=== PATIENT | male | born 1965 | race Caucasian/White ===

== ENCOUNTER 2023-08-15 22:00 | Inpatient (IN) | payer OTHER ==
[2023-08-15] MEDS ORDERED: FUROSEMIDE 40 MG/4 ML INJECTABLE VIAL IVPUSH ONE (22:34)
[2023-08-15] MEDS ORDERED: ALBUTEROL SO4 2.5/IPRATROPIUM 0.5 INH SOL 3 ML VIAL.NEB. NEB ONE (23:01)
[2023-08-15] MEDS: ALBUTEROL SO4 2.5/IPRATROPIUM 0.5 INH SOL 3 ML VIAL.NEB. NEB SCH ×3 (23:06→23:37)
[2023-08-15] MEDS ORDERED: FUROSEMIDE 40 MG/4 ML INJECTABLE VIAL ONE (23:38)
[2023-08-15 23:39] LABS: VENOUS BASE EXCESS 5.2 mmol/L (-2-2); VENOUS PH 7.234 (7.310-7.410)
[2023-08-15 23:43] LABS: VENOUS PCO2 86.5 mmHg (38-52)
[2023-08-15 23:47] LABS: BASO % 0.5 % (0-2.0); EOS % 1.4 % (0-4.5); HEMATOCRIT 40.7 % (35.4-49); HEMOGLOBIN 12.9 GM/dL (11.7-16.9); LYMPH % 22.1 % (8-40); MCH 28.2 pg (25.7-33.7); MCHC 31.6 g/dl (32.0-35.9); MEAN CELL VOLUME 89.1 fl (80-96); MEAN PLT VOLUME 7.8 fl (7.5-11.1); MONO % 6.6 % (3.8-10.2); NEUT % 69.4 % (42.8-82.8); PLATELET COUNT 308 10^3/uL (134-434); RBC 4.57 M/mm3 (4.00-5.60); RDW 15.4 % (11.9-15.9); WHITE BLOOD COUNT 12.6 K/mm3 (4.0-10.0)
[2023-08-15 23:54] LABS: INR 0.97 (0.83-1.09); PROTHROMBIN TIME (PATIENT) 11.2 SEC (9.7-13.0)
[2023-08-15 23:57] LABS: ACTIVATED PTT 28.2 SECONDS (25.2-36.5)
[2023-08-16 00:08] LABS: POTASSIUM 4.1 mmol/L (3.5-5.1)
[2023-08-16 00:10] LABS: CALCIUM 8.4 mg/dL (8.5-10.1)
[2023-08-16 00:11] LABS: ALBUMIN 3.1 g/dl (3.4-5.0); BLOOD UREA NITROGEN 13.1 mg/dL (7-18)
[2023-08-16 00:14] LABS: CREATININE 0.8 mg/dL (0.55-1.3)
[2023-08-16 00:16] LABS: BILIRUBIN,TOTAL 0.3 mg/dL (0.2-1)
[2023-08-16 00:19] LABS: N-TERMINAL BNP 206.9 pg/ml (5-125)
[2023-08-16 02:30] LABS: ARTERIAL BLD GAS O2 SATURATION 85.3 % (95-98); ARTERIAL BLOOD GAS pH 7.363 (7.350-7.450)
[2023-08-16] MEDS ORDERED: AZITHROMYCIN IVPB 500 MG in DEXTROSE 5%-WATER - 250 ML IVPB ONE (04:11)
[2023-08-16] MEDS ORDERED: CEFTRIAXONE 1 GM in DEXTROSE 5%-WATER - 50 ML IVPB ONE (05:24)
[2023-08-16] MEDS ORDERED: ALBUTEROL SO4 HFA INHALER IH PRN (05:35)
[2023-08-16] MEDS ORDERED: AZITHROMYCIN IVPB 500 MG/250 ML BAG IVPB ONE (06:12)
[2023-08-16 06:44] LABS: HEMATOCRIT 36.9 % (35.4-49); HEMOGLOBIN 11.6 GM/dL (11.7-16.9); MCH 28.4 pg (25.7-33.7); MCHC 31.4 g/dl (32.0-35.9); MEAN CELL VOLUME 90.6 fl (80-96); MEAN PLT VOLUME 8.1 fl (7.5-11.1); PLATELET COUNT 292 10^3/uL (134-434); RBC 4.07 M/mm3 (4.00-5.60); RDW 14.9 % (11.9-15.9); WHITE BLOOD COUNT 12.5 K/mm3 (4.0-10.0)
[2023-08-16 06:54] LABS: POTASSIUM 4.2 mmol/L (3.5-5.1)
[2023-08-16 06:56] LABS: ALBUMIN 2.9 g/dl (3.4-5.0); CALCIUM 8.3 mg/dL (8.5-10.1)
[2023-08-16 06:57] LABS: BLOOD UREA NITROGEN 12.2 mg/dL (7-18); MAGNESIUM 1.6 mg/dL (1.8-2.4)
[2023-08-16 06:59] LABS: PHOSPHOROUS 3.9 mg/dL (2.5-4.9)
[2023-08-16 07:00] LABS: CREATININE 0.9 mg/dL (0.55-1.3)
[2023-08-16 07:01] LABS: BILIRUBIN,TOTAL 0.2 mg/dL (0.2-1); TOT PROT 6.4 g/dl (6.4-8.2)
[2023-08-16] MEDS ORDERED: CEFTRIAXONE 1 GM/50 ML BAG ONE (07:13)
[2023-08-16 07:59] LABS: EPI CELLS 2 /uL (0-25.1); HYALINE CASTS 0 /uL (0-3.1); PH,URINE 5.5 (5.0-8.0); URINE APPEARANCE CLEAR; URINE BACTERIA 1 /uL (0-1359); URINE BILIRUBIN NEGATIVE (NEGATIVE); URINE COLOR YELLOW; URINE GLUCOSE (UA) NEGATIVE (NEGATIVE); URINE KETONE NEGATIVE (NEGATIVE); URINE LEUK ESTERASE TRACE (NEGATIVE); URINE NITRITE NEGATIVE (NEGATIVE); URINE PROTEIN NEGATIVE (NEGATIVE); URINE RBC 7 /uL (0-23.9); URINE UROBILINOGEN 0.2 mg/dL (0.2-1.0); URINE WBC 16 /uL (0-25.8)
[2023-08-16] MEDS ORDERED: FUROSEMIDE 40 MG/4 ML INJECTABLE VIAL IVPUSH SCH (10:00)
[2023-08-16] MEDS ORDERED: CEFTRIAXONE 1 GM in DEXTROSE 5%-WATER - 50 ML IVPB SCH (10:00)
[2023-08-16] MEDS ORDERED: FOLIC ACID 1 MG TABLET (FP) ONE (10:14)
[2023-08-16] MEDS ORDERED: LEVALBUTEROL HCL 0.63 MG/3 ML VIAL.NEB. IH ONE ×2 (10:14→14:00)
[2023-08-16] MEDS ORDERED: methylPREDNISolone NA SUCC 40 MG/1 ML VIAL ONE (10:15)
[2023-08-16] MEDS ORDERED: FUROSEMIDE 40 MG/4 ML INJECTABLE VIAL ONE ×2 (10:15→14:00)
[2023-08-16] MEDS: THIAMINE HCL 100 MG TABLET (FP) PO SCH (10:29)
[2023-08-16] MEDS: FOLIC ACID 1 MG TABLET (FP) PO SCH (10:29)
[2023-08-16] MEDS: LEVALBUTEROL HCL 0.63 MG/3 ML VIAL.NEB. IH SCH ×3 (10:29→20:32)
[2023-08-16] MEDS: ENOXAPARIN NA (PORCINE) 40 MG/0.4 ML DISP.SYRIN SQ SCH (10:29)
[2023-08-16] MEDS: methylPREDNISolone NA SUCC 40 MG/1 ML VIAL IVPUSH SCH (10:29)
[2023-08-16] MEDS ORDERED: PIPERACILLIN/TAZOB 3.375 GM 3.375 GM in DEXTROSE 5%-WATER - 50 ML IVPB SCH (11:00)
[2023-08-16] MEDS ORDERED: PIPERACILLIN/TAZOB 3.375 GM 3.375 GM/50 ML BAG IVPB ONE ×2 (11:48→17:49)
[2023-08-16] MEDS: PIPERACILLIN/TAZOB 3.375 GM 3.375 GM in DEXTROSE 5%-WATER - 50 ML IVPB SCH ×2 (11:55→18:04)
[2023-08-16] MEDS: FUROSEMIDE 40 MG/4 ML INJECTABLE VIAL IVPUSH SCH (14:08)
[2023-08-16 20:18] VITALS: BMI 47.8
[2023-08-16] MEDS: chlordiazePOXIDE HCL 25 MG CAPSULE PO PRN (22:01)
[2023-08-17] MEDS: PIPERACILLIN/TAZOB 3.375 GM 3.375 GM in DEXTROSE 5%-WATER - 50 ML IVPB SCH ×3 (01:02→14:15)
[2023-08-17] MEDS: chlordiazePOXIDE HCL 25 MG CAPSULE PO PRN (05:54)
[2023-08-17] MEDS: FUROSEMIDE 40 MG/4 ML INJECTABLE VIAL IVPUSH SCH ×2 (05:54→14:13)
[2023-08-17] MEDS: LEVALBUTEROL HCL 0.63 MG/3 ML VIAL.NEB. IH SCH ×3 (07:30→20:17)
[2023-08-17 08:45] LABS: BASO % 0.6 % (0-2.0); EOS % 0.2 % (0-4.5); HEMATOCRIT 39.4 % (35.4-49); HEMOGLOBIN 12.9 GM/dL (11.7-16.9); LYMPH % 12.8 % (8-40); MCHC 32.8 g/dl (32.0-35.9); MEAN CELL VOLUME 88.3 fl (80-96); MEAN PLT VOLUME 8.4 fl (7.5-11.1); MONO % 5.3 % (3.8-10.2); NEUT % 81.1 % (42.8-82.8); PLATELET COUNT 306 10^3/uL (134-434); RBC 4.47 M/mm3 (4.00-5.60); RDW 14.6 % (11.9-15.9); WHITE BLOOD COUNT 12.6 K/mm3 (4.0-10.0)
[2023-08-17 09:00] LABS: POTASSIUM 4.2 mmol/L (3.5-5.1)
[2023-08-17 09:09] LABS: CALCIUM 8.2 mg/dL (8.5-10.1)
[2023-08-17 09:10] LABS: ALBUMIN 3.1 g/dl (3.4-5.0); BLOOD UREA NITROGEN 16.2 mg/dL (7-18)
[2023-08-17 09:12] LABS: CREATININE 0.9 mg/dL (0.55-1.3); PHOSPHOROUS 3.6 mg/dL (2.5-4.9)
[2023-08-17 09:14] LABS: BILIRUBIN,TOTAL 0.5 mg/dL (0.2-1); TOT PROT 7.2 g/dl (6.4-8.2)
[2023-08-17] MEDS: FOLIC ACID 1 MG TABLET (FP) PO SCH (10:11)
[2023-08-17] MEDS: THIAMINE HCL 100 MG TABLET (FP) PO SCH (10:11)
[2023-08-17] MEDS: methylPREDNISolone NA SUCC 40 MG/1 ML VIAL IVPUSH SCH (10:11)
[2023-08-17] MEDS: ENOXAPARIN NA (PORCINE) 40 MG/0.4 ML DISP.SYRIN SQ SCH ×2 (10:11→11:07)
[2023-08-17] MEDS: AZITHROMYCIN IVPB 500 MG/250 ML BAG IVPB SCH (10:12)
[2023-08-17] MEDS: PIPERACILLIN/TAZOB 4.5 GM 4.5 GM in DEXTROSE 5%-WATER 100 ML IVPB SCH ×2 (14:19→17:34)
[2023-08-17] MEDS ORDERED: BENZOCAINE/MENTH/CETYLPYRD CL 1 EACH LOZENGE MM PRN (15:25)
[2023-08-17] MEDS: ATORVASTATIN CA 20 MG TABLET (FP) PO SCH (21:13)
[2023-08-18] MEDS ORDERED: chlordiazePOXIDE HCL 10 MG CAPSULE PO PRN
[2023-08-18] MEDS: PIPERACILLIN/TAZOB 4.5 GM 4.5 GM in DEXTROSE 5%-WATER 100 ML IVPB SCH ×3 (01:42→19:48)
[2023-08-18] MEDS: FUROSEMIDE 40 MG/4 ML INJECTABLE VIAL IVPUSH SCH ×2 (06:54→14:19)
[2023-08-18 08:36] LABS: BASO % 0.3 % (0-2.0); HEMATOCRIT 40.4 % (35.4-49); HEMOGLOBIN 12.7 GM/dL (11.7-16.9); LYMPH % 11.6 % (8-40); MCH 28.4 pg (25.7-33.7); MCHC 31.3 g/dl (32.0-35.9); MEAN CELL VOLUME 90.6 fl (80-96); MEAN PLT VOLUME 8.2 fl (7.5-11.1); MONO % 5.3 % (3.8-10.2); NEUT % 82.8 % (42.8-82.8); PLATELET COUNT 333 10^3/uL (134-434); RBC 4.46 M/mm3 (4.00-5.60); RDW 14.8 % (11.9-15.9); WHITE BLOOD COUNT 12.3 K/mm3 (4.0-10.0)
[2023-08-18] MEDS: LEVALBUTEROL HCL 0.63 MG/3 ML VIAL.NEB. IH SCH ×3 (08:40→20:21)
[2023-08-18 08:50] LABS: POTASSIUM 4.5 mmol/L (3.5-5.1)
[2023-08-18 08:55] LABS: ALBUMIN 3.2 g/dl (3.4-5.0); BLOOD UREA NITROGEN 19.6 mg/dL (7-18); MAGNESIUM 2.2 mg/dL (1.8-2.4); PHOSPHOROUS 4.2 mg/dL (2.5-4.9)
[2023-08-18 08:56] LABS: CALCIUM 8.8 mg/dL (8.5-10.1)
[2023-08-18 08:57] LABS: TOT PROT 6.9 g/dl (6.4-8.2)
[2023-08-18 08:58] LABS: CREATININE 0.9 mg/dL (0.55-1.3)
[2023-08-18 09:00] LABS: BILIRUBIN,TOTAL 0.2 mg/dL (0.2-1)
[2023-08-18] MEDS: methylPREDNISolone NA SUCC 40 MG/1 ML VIAL IVPUSH SCH (10:08)
[2023-08-18] MEDS: THIAMINE HCL 100 MG TABLET (FP) PO SCH (10:08)
[2023-08-18] MEDS: ENOXAPARIN NA (PORCINE) 40 MG/0.4 ML DISP.SYRIN SQ SCH (10:08)
[2023-08-18] MEDS: FOLIC ACID 1 MG TABLET (FP) PO SCH (10:08)
[2023-08-18] MEDS: AZITHROMYCIN IVPB 500 MG/250 ML BAG IVPB SCH (10:09)
[2023-08-18 10:18] LABS: HIV INTERPRETATION NEGATIVE (NEGATIVE)
[2023-08-18] MEDS: ATORVASTATIN CA 20 MG TABLET (FP) PO SCH (21:16)
[2023-08-18] MEDS: NYSTATIN 100,000 UNIT/GM TOPICAL CREAM 15 GM TUBE TP SCH (21:16)
[2023-08-18] MEDS: ACETAMINOPHEN 325 MG TABLET (FP) PO PRN (21:55)
[2023-08-19] MEDS: PIPERACILLIN/TAZOB 4.5 GM 4.5 GM in DEXTROSE 5%-WATER 100 ML IVPB SCH ×3 (01:33→17:40)
[2023-08-19] MEDS: chlordiazePOXIDE HCL 10 MG CAPSULE PO SCH ×2 (05:59→17:39)
[2023-08-19] MEDS: FUROSEMIDE 40 MG/4 ML INJECTABLE VIAL IVPUSH SCH ×2 (06:00→14:37)
[2023-08-19] MEDS: LEVALBUTEROL HCL 0.63 MG/3 ML VIAL.NEB. IH SCH ×3 (07:45→20:08)
[2023-08-19] MEDS: THIAMINE HCL 100 MG TABLET (FP) PO SCH (09:18)
[2023-08-19] MEDS: AZITHROMYCIN IVPB 500 MG/250 ML BAG IVPB SCH (09:18)
[2023-08-19] MEDS: ENOXAPARIN NA (PORCINE) 40 MG/0.4 ML DISP.SYRIN SQ SCH (09:18)
[2023-08-19] MEDS: FOLIC ACID 1 MG TABLET (FP) PO SCH (09:18)
[2023-08-19] MEDS: NYSTATIN 100,000 UNIT/GM TOPICAL CREAM 15 GM TUBE TP SCH ×2 (09:19→21:29)
[2023-08-19 10:07] LABS: BASO % 0.2 % (0-2.0); EOS % 0.2 % (0-4.5); HEMATOCRIT 40.3 % (35.4-49); HEMOGLOBIN 13.4 GM/dL (11.7-16.9); LYMPH % 20.7 % (8-40); MCH 29.1 pg (25.7-33.7); MCHC 33.1 g/dl (32.0-35.9); MEAN CELL VOLUME 87.9 fl (80-96); MEAN PLT VOLUME 8.1 fl (7.5-11.1); MONO % 6.5 % (3.8-10.2); NEUT % 72.4 % (42.8-82.8); PLATELET COUNT 344 10^3/uL (134-434); RBC 4.58 M/mm3 (4.00-5.60); RDW 15.2 % (11.9-15.9); WHITE BLOOD COUNT 11.1 K/mm3 (4.0-10.0)
[2023-08-19 10:42] LABS: POTASSIUM 4.1 mmol/L (3.5-5.1)
[2023-08-19 11:35] LABS: BLOOD UREA NITROGEN 16.5 mg/dL (7-18); CALCIUM 8.9 mg/dL (8.5-10.1); MAGNESIUM 2.3 mg/dL (1.8-2.4)
[2023-08-19 11:36] LABS: ALBUMIN 3.1 g/dl (3.4-5.0)
[2023-08-19 11:38] LABS: CREATININE 0.9 mg/dL (0.55-1.3); PHOSPHOROUS 3.9 mg/dL (2.5-4.9)
[2023-08-19 11:39] LABS: BILIRUBIN,TOTAL 0.3 mg/dL (0.2-1); TOT PROT 7.1 g/dl (6.4-8.2)
[2023-08-19] MEDS: ATORVASTATIN CA 20 MG TABLET (FP) PO SCH (21:23)
[2023-08-19] MEDS: ACETAMINOPHEN 325 MG TABLET (FP) PO PRN (22:27)
[2023-08-20] MEDS: PIPERACILLIN/TAZOB 4.5 GM 4.5 GM in DEXTROSE 5%-WATER 100 ML IVPB SCH ×3 (01:31→17:22)
[2023-08-20] MEDS ORDERED: chlordiazePOXIDE HCL 10 MG CAPSULE PO ONE (05:00)
[2023-08-20] MEDS: FUROSEMIDE 40 MG/4 ML INJECTABLE VIAL IVPUSH SCH ×2 (05:58→14:55)
[2023-08-20 07:35] LABS: POTASSIUM 4.1 mmol/L (3.5-5.1)
[2023-08-20 07:39] LABS: ALBUMIN 2.8 g/dl (3.4-5.0); BLOOD UREA NITROGEN 20.1 mg/dL (7-18); CALCIUM 8.6 mg/dL (8.5-10.1)
[2023-08-20 07:41] LABS: HEMATOCRIT 39.4 % (35.4-49); HEMOGLOBIN 12.4 GM/dL (11.7-16.9); MCH 28.4 pg (25.7-33.7); MCHC 31.4 g/dl (32.0-35.9); MEAN CELL VOLUME 90.5 fl (80-96); MEAN PLT VOLUME 8.2 fl (7.5-11.1); PLATELET COUNT 321 10^3/uL (134-434); RBC 4.35 M/mm3 (4.00-5.60); RDW 14.7 % (11.9-15.9); WHITE BLOOD COUNT 10.2 K/mm3 (4.0-10.0)
[2023-08-20 07:42] LABS: CREATININE 0.9 mg/dL (0.55-1.3); PHOSPHOROUS 5.1 mg/dL (2.5-4.9)
[2023-08-20 07:44] LABS: BILIRUBIN,TOTAL 0.4 mg/dL (0.2-1); TOT PROT 6.2 g/dl (6.4-8.2)
[2023-08-20] MEDS: LEVALBUTEROL HCL 0.63 MG/3 ML VIAL.NEB. IH SCH (07:50)
[2023-08-20] MEDS: ENOXAPARIN NA (PORCINE) 40 MG/0.4 ML DISP.SYRIN SQ SCH (10:16)
[2023-08-20] MEDS: THIAMINE HCL 100 MG TABLET (FP) PO SCH (10:16)
[2023-08-20] MEDS: FOLIC ACID 1 MG TABLET (FP) PO SCH (10:16)
[2023-08-20] MEDS: AZITHROMYCIN IVPB 500 MG/250 ML BAG IVPB SCH (10:17)
[2023-08-20] MEDS: NYSTATIN 100,000 UNIT/GM TOPICAL CREAM 15 GM TUBE TP SCH ×2 (10:19→21:16)
[2023-08-20] MEDS: acetaZOLAMIDE 250 MG TABLET PO SCH (15:20)
[2023-08-20] MEDS: ATORVASTATIN CA 20 MG TABLET (FP) PO SCH (21:16)
[2023-08-21] MEDS: PIPERACILLIN/TAZOB 4.5 GM 4.5 GM in DEXTROSE 5%-WATER 100 ML IVPB SCH ×2 (01:34→09:27)
[2023-08-21] MEDS: FUROSEMIDE 40 MG/4 ML INJECTABLE VIAL IVPUSH SCH ×2 (06:47→14:55)
[2023-08-21] MEDS: acetaZOLAMIDE 250 MG TABLET PO SCH ×2 (06:47→15:03)
[2023-08-21] MEDS: ENOXAPARIN NA (PORCINE) 40 MG/0.4 ML DISP.SYRIN SQ SCH ×2 (09:29→21:15)
[2023-08-21] MEDS: THIAMINE HCL 100 MG TABLET (FP) PO SCH (09:29)
[2023-08-21] MEDS: FOLIC ACID 1 MG TABLET (FP) PO SCH (09:29)
[2023-08-21 10:01] LABS: ALBUMIN 3.2 g/dl (3.4-5.0); BLOOD UREA NITROGEN 17.9 mg/dL (7-18); CALCIUM 8.5 mg/dL (8.5-10.1)
[2023-08-21 10:03] LABS: MAGNESIUM 2.4 mg/dL (1.8-2.4)
[2023-08-21 10:06] LABS: BILIRUBIN,TOTAL 0.5 mg/dL (0.2-1); TOT PROT 7.1 g/dl (6.4-8.2)
[2023-08-21 10:24] LABS: HEMATOCRIT 41.5 % (35.4-49); HEMOGLOBIN 13.4 GM/dL (11.7-16.9); MCH 28.6 pg (25.7-33.7); MCHC 32.1 g/dl (32.0-35.9); MEAN CELL VOLUME 88.9 fl (80-96); PLATELET COUNT 325 10^3/uL (134-434); RBC 4.67 M/mm3 (4.00-5.60); RDW 15.6 % (11.9-15.9); WHITE BLOOD COUNT 11.5 K/mm3 (4.0-10.0)
[2023-08-21] MEDS: NYSTATIN 100,000 UNIT/GM TOPICAL CREAM 15 GM TUBE TP SCH ×2 (12:04→21:16)
[2023-08-21] MEDS: AMOX TR/POT CLAV 875MG/125MG TABLETS (FP) PO SCH (17:42)
[2023-08-21] MEDS: ATORVASTATIN CA 20 MG TABLET (FP) PO SCH (21:15)
[2023-08-22] MEDS: acetaZOLAMIDE 250 MG TABLET PO SCH ×2 (06:30→16:03)
[2023-08-22] MEDS: FUROSEMIDE 40 MG/4 ML INJECTABLE VIAL IVPUSH SCH ×2 (06:30→14:43)
[2023-08-22 08:18] LABS: HEMATOCRIT 43.9 % (35.4-49); HEMOGLOBIN 14.1 GM/dL (11.7-16.9); MCH 28.5 pg (25.7-33.7); MEAN CELL VOLUME 88.9 fl (80-96); PLATELET COUNT 299 10^3/uL (134-434); RBC 4.94 M/mm3 (4.00-5.60); RDW 15.3 % (11.9-15.9); WHITE BLOOD COUNT 10.1 K/mm3 (4.0-10.0)
[2023-08-22 08:42] LABS: POTASSIUM 4.2 mmol/L (3.5-5.1)
[2023-08-22 08:44] LABS: ALBUMIN 3.2 g/dl (3.4-5.0); BLOOD UREA NITROGEN 19.5 mg/dL (7-18); CALCIUM 8.8 mg/dL (8.5-10.1); MAGNESIUM 2.4 mg/dL (1.8-2.4)
[2023-08-22 08:47] LABS: CREATININE 1.1 mg/dL (0.55-1.3); PHOSPHOROUS 3.8 mg/dL (2.5-4.9)
[2023-08-22 08:49] LABS: BILIRUBIN,TOTAL 0.3 mg/dL (0.2-1)
[2023-08-22] MEDS: ENOXAPARIN NA (PORCINE) 40 MG/0.4 ML DISP.SYRIN SQ SCH ×2 (09:27→21:40)
[2023-08-22] MEDS: THIAMINE HCL 100 MG TABLET (FP) PO SCH (09:27)
[2023-08-22] MEDS: FOLIC ACID 1 MG TABLET (FP) PO SCH (09:27)
[2023-08-22] MEDS: AMOX TR/POT CLAV 875MG/125MG TABLETS (FP) PO SCH ×2 (09:30→17:23)
[2023-08-22] MEDS: NYSTATIN 100,000 UNIT/GM TOPICAL CREAM 15 GM TUBE TP SCH ×2 (11:34→21:40)
[2023-08-22] MEDS: ATORVASTATIN CA 20 MG TABLET (FP) PO SCH (21:41)
[2023-08-23] MEDS: acetaZOLAMIDE 250 MG TABLET PO SCH ×2 (06:14→14:08)
[2023-08-23] MEDS: FUROSEMIDE 40 MG/4 ML INJECTABLE VIAL IVPUSH SCH ×2 (06:14→14:05)
[2023-08-23 08:00] LABS: HEMATOCRIT 40.8 % (35.4-49); HEMOGLOBIN 12.6 GM/dL (11.7-16.9); MCH 27.9 pg (25.7-33.7); MCHC 30.9 g/dl (32.0-35.9); MEAN CELL VOLUME 90.4 fl (80-96); MEAN PLT VOLUME 8.3 fl (7.5-11.1); PLATELET COUNT 275 10^3/uL (134-434); RBC 4.51 M/mm3 (4.00-5.60); RDW 14.8 % (11.9-15.9); WHITE BLOOD COUNT 10.4 K/mm3 (4.0-10.0)
[2023-08-23 08:18] LABS: CALCIUM 9.2 mg/dL (8.5-10.1); POTASSIUM 3.9 mmol/L (3.5-5.1)
[2023-08-23 08:21] LABS: BLOOD UREA NITROGEN 20.3 mg/dL (7-18)
[2023-08-23 08:23] LABS: PHOSPHOROUS 3.4 mg/dL (2.5-4.9)
[2023-08-23 08:25] LABS: BILIRUBIN,TOTAL 0.4 mg/dL (0.2-1); TOT PROT 6.6 g/dl (6.4-8.2)
[2023-08-23] MEDS: ENOXAPARIN NA (PORCINE) 40 MG/0.4 ML DISP.SYRIN SQ SCH ×2 (09:44→22:24)
[2023-08-23] MEDS: THIAMINE HCL 100 MG TABLET (FP) PO SCH (09:44)
[2023-08-23] MEDS: FOLIC ACID 1 MG TABLET (FP) PO SCH (09:44)
[2023-08-23] MEDS: AMOX TR/POT CLAV 875MG/125MG TABLETS (FP) PO SCH ×2 (09:44→17:08)
[2023-08-23] MEDS: NYSTATIN 100,000 UNIT/GM TOPICAL CREAM 15 GM TUBE TP SCH ×2 (12:09→22:25)
[2023-08-23] MEDS: ATORVASTATIN CA 20 MG TABLET (FP) PO SCH (22:24)
[2023-08-24] MEDS: FUROSEMIDE 40 MG/4 ML INJECTABLE VIAL IVPUSH SCH ×2 (06:19→13:56)
[2023-08-24 08:11] LABS: HEMATOCRIT 41.4 % (35.4-49); HEMOGLOBIN 13.2 GM/dL (11.7-16.9); MCH 28.3 pg (25.7-33.7); MCHC 31.9 g/dl (32.0-35.9); MEAN CELL VOLUME 88.7 fl (80-96); MEAN PLT VOLUME 8.4 fl (7.5-11.1); PLATELET COUNT 292 10^3/uL (134-434); RBC 4.67 M/mm3 (4.00-5.60); RDW 14.6 % (11.9-15.9)
[2023-08-24 08:16] LABS: POTASSIUM 3.6 mmol/L (3.5-5.1)
[2023-08-24 08:19] LABS: CALCIUM 8.4 mg/dL (8.5-10.1)
[2023-08-24 08:20] LABS: ALBUMIN 3.1 g/dl (3.4-5.0); BLOOD UREA NITROGEN 19.8 mg/dL (7-18)
[2023-08-24 08:23] LABS: CREATININE 0.9 mg/dL (0.55-1.3); PHOSPHOROUS 3.4 mg/dL (2.5-4.9)
[2023-08-24 08:25] LABS: BILIRUBIN,TOTAL 0.4 mg/dL (0.2-1)
[2023-08-24] MEDS: THIAMINE HCL 100 MG TABLET (FP) PO SCH (09:38)
[2023-08-24] MEDS: FOLIC ACID 1 MG TABLET (FP) PO SCH (09:38)
[2023-08-24] MEDS: ENOXAPARIN NA (PORCINE) 40 MG/0.4 ML DISP.SYRIN SQ SCH ×2 (09:38→21:25)
[2023-08-24] MEDS: NYSTATIN 100,000 UNIT/GM TOPICAL CREAM 15 GM TUBE TP SCH ×2 (09:39→21:25)
[2023-08-24] MEDS: ATORVASTATIN CA 20 MG TABLET (FP) PO SCH (21:25)
[2023-08-25] MEDS ORDERED: FUROSEMIDE 40 MG TABLET (FP) PO SCH ×2 (06:00→07:33)
[2023-08-25 08:40] LABS: HEMATOCRIT 42.6 % (35.4-49); HEMOGLOBIN 13.9 GM/dL (11.7-16.9); MCH 28.7 pg (25.7-33.7); MCHC 32.6 g/dl (32.0-35.9); MEAN CELL VOLUME 88.2 fl (80-96); MEAN PLT VOLUME 8.3 fl (7.5-11.1); PLATELET COUNT 322 10^3/uL (134-434); RBC 4.83 M/mm3 (4.00-5.60); RDW 14.5 % (11.9-15.9); WHITE BLOOD COUNT 10.4 K/mm3 (4.0-10.0)
[2023-08-25 08:52] LABS: POTASSIUM 3.7 mmol/L (3.5-5.1)
[2023-08-25 08:54] LABS: ALBUMIN 3.4 g/dl (3.4-5.0); BLOOD UREA NITROGEN 16.5 mg/dL (7-18); CALCIUM 8.5 mg/dL (8.5-10.1)
[2023-08-25 08:57] LABS: CREATININE 0.9 mg/dL (0.55-1.3); PHOSPHOROUS 3.4 mg/dL (2.5-4.9)
[2023-08-25 08:59] LABS: BILIRUBIN,TOTAL 0.6 mg/dL (0.2-1); TOT PROT 7.4 g/dl (6.4-8.2)
[2023-08-25] MEDS: THIAMINE HCL 100 MG TABLET (FP) PO SCH (09:32)
[2023-08-25] MEDS: FOLIC ACID 1 MG TABLET (FP) PO SCH (09:32)
[2023-08-25] MEDS: ENOXAPARIN NA (PORCINE) 40 MG/0.4 ML DISP.SYRIN SQ SCH ×2 (09:32→21:16)
[2023-08-25] MEDS: NYSTATIN 100,000 UNIT/GM TOPICAL CREAM 15 GM TUBE TP SCH ×2 (10:04→21:16)
[2023-08-25] MEDS: ATORVASTATIN CA 20 MG TABLET (FP) PO SCH (21:16)
[2023-08-26 08:43] LABS: HEMATOCRIT 39.1 % (35.4-49); HEMOGLOBIN 12.6 GM/dL (11.7-16.9); MCH 28.5 pg (25.7-33.7); MCHC 32.2 g/dl (32.0-35.9); MEAN CELL VOLUME 88.5 fl (80-96); MEAN PLT VOLUME 8.7 fl (7.5-11.1); PLATELET COUNT 272 10^3/uL (134-434); RBC 4.41 M/mm3 (4.00-5.60); RDW 14.6 % (11.9-15.9)
[2023-08-26 08:58] LABS: POTASSIUM 3.9 mmol/L (3.5-5.1)
[2023-08-26 09:02] LABS: BLOOD UREA NITROGEN 15.1 mg/dL (7-18); CALCIUM 8.6 mg/dL (8.5-10.1); MAGNESIUM 1.9 mg/dL (1.8-2.4)
[2023-08-26 09:06] LABS: CREATININE 0.9 mg/dL (0.55-1.3)
[2023-08-26 09:07] LABS: BILIRUBIN,TOTAL 0.4 mg/dL (0.2-1); TOT PROT 6.7 g/dl (6.4-8.2)
[2023-08-26] MEDS: ENOXAPARIN NA (PORCINE) 40 MG/0.4 ML DISP.SYRIN SQ SCH ×2 (09:36→21:41)
[2023-08-26] MEDS: THIAMINE HCL 100 MG TABLET (FP) PO SCH (09:36)
[2023-08-26] MEDS: FOLIC ACID 1 MG TABLET (FP) PO SCH (09:37)
[2023-08-26] MEDS: NYSTATIN 100,000 UNIT/GM TOPICAL CREAM 15 GM TUBE TP SCH ×2 (09:37→21:41)
[2023-08-26] MEDS ORDERED: HYDROCORTISONE 0.5% TOPICAL CREAM 30 GM TUBE TP PRN (11:12)
[2023-08-26] MEDS: HYDROCORTISONE 0.5% TOPICAL CREAM 30 GM TUBE TP SCH (14:38)
[2023-08-26] MEDS: ATORVASTATIN CA 20 MG TABLET (FP) PO SCH (21:41)
[2023-08-27 07:49] LABS: HEMATOCRIT 39.4 % (35.4-49); HEMOGLOBIN 12.6 GM/dL (11.7-16.9); MCH 28.3 pg (25.7-33.7); MEAN CELL VOLUME 88.5 fl (80-96); MEAN PLT VOLUME 8.9 fl (7.5-11.1); PLATELET COUNT 266 10^3/uL (134-434); RBC 4.45 M/mm3 (4.00-5.60); RDW 14.5 % (11.9-15.9); WHITE BLOOD COUNT 10.9 K/mm3 (4.0-10.0)
[2023-08-27 08:26] LABS: POTASSIUM 3.9 mmol/L (3.5-5.1)
[2023-08-27 08:32] LABS: BLOOD UREA NITROGEN 11.2 mg/dL (7-18); CREATININE 0.7 mg/dL (0.55-1.3)
[2023-08-27] MEDS: ENOXAPARIN NA (PORCINE) 40 MG/0.4 ML DISP.SYRIN SQ SCH ×2 (09:33→22:15)
[2023-08-27] MEDS: THIAMINE HCL 100 MG TABLET (FP) PO SCH (09:33)
[2023-08-27] MEDS: HYDROCORTISONE 1% TOPICAL LOTION 118 ML BOTTLE TP SCH (09:33)
[2023-08-27] MEDS: FOLIC ACID 1 MG TABLET (FP) PO SCH (09:33)
[2023-08-27] MEDS: HYDROCORTISONE 0.5% TOPICAL CREAM 30 GM TUBE TP SCH (09:34)
[2023-08-27] MEDS: NYSTATIN 100,000 UNIT/GM TOPICAL CREAM 15 GM TUBE TP SCH ×2 (09:34→22:15)
[2023-08-27] MEDS: ATORVASTATIN CA 20 MG TABLET (FP) PO SCH (22:15)
[2023-08-28 09:14] LABS: HEMATOCRIT 35.5 % (35.4-49); MCH 29.4 pg (25.7-33.7); MCHC 33.9 g/dl (32.0-35.9); MEAN CELL VOLUME 86.5 fl (80-96); MEAN PLT VOLUME 9.2 fl (7.5-11.1); PLATELET COUNT 265 10^3/uL (134-434); RDW 14.3 % (11.9-15.9); WHITE BLOOD COUNT 9.6 K/mm3 (4.0-10.0)
[2023-08-28] MEDS: ENOXAPARIN NA (PORCINE) 40 MG/0.4 ML DISP.SYRIN SQ SCH ×2 (09:16→21:46)
[2023-08-28] MEDS: HYDROCORTISONE 0.5% TOPICAL CREAM 30 GM TUBE TP SCH (09:16)
[2023-08-28] MEDS: THIAMINE HCL 100 MG TABLET (FP) PO SCH (09:16)
[2023-08-28] MEDS: FOLIC ACID 1 MG TABLET (FP) PO SCH (09:16)
[2023-08-28] MEDS: HYDROCORTISONE 1% TOPICAL LOTION 118 ML BOTTLE TP SCH (09:17)
[2023-08-28] MEDS: NYSTATIN 100,000 UNIT/GM TOPICAL CREAM 15 GM TUBE TP SCH ×2 (09:23→21:46)
[2023-08-28 09:42] LABS: POTASSIUM 4.2 mmol/L (3.5-5.1)
[2023-08-28 09:50] LABS: CALCIUM 8.4 mg/dL (8.5-10.1)
[2023-08-28 09:51] LABS: ALBUMIN 2.8 g/dl (3.4-5.0)
[2023-08-28 09:53] LABS: CREATININE 0.7 mg/dL (0.55-1.3)
[2023-08-28 09:55] LABS: BILIRUBIN,TOTAL 0.4 mg/dL (0.2-1); TOT PROT 6.2 g/dl (6.4-8.2)
[2023-08-28] MEDS: ATORVASTATIN CA 20 MG TABLET (FP) PO SCH (21:46)
[2023-08-29 07:36] LABS: HEMATOCRIT 37.4 % (35.4-49); HEMOGLOBIN 11.9 GM/dL (11.7-16.9); MCH 28.1 pg (25.7-33.7); MCHC 31.8 g/dl (32.0-35.9); MEAN CELL VOLUME 88.4 fl (80-96); MEAN PLT VOLUME 8.8 fl (7.5-11.1); PLATELET COUNT 286 10^3/uL (134-434); RBC 4.23 M/mm3 (4.00-5.60); RDW 14.6 % (11.9-15.9); WHITE BLOOD COUNT 9.6 K/mm3 (4.0-10.0)
[2023-08-29 07:53] LABS: POTASSIUM 4.3 mmol/L (3.5-5.1)
[2023-08-29 08:00] LABS: CALCIUM 8.9 mg/dL (8.5-10.1)
[2023-08-29 08:01] LABS: ALBUMIN 2.9 g/dl (3.4-5.0); BLOOD UREA NITROGEN 12.9 mg/dL (7-18)
[2023-08-29 08:04] LABS: CREATININE 0.8 mg/dL (0.55-1.3)
[2023-08-29 08:05] LABS: BILIRUBIN,TOTAL 0.3 mg/dL (0.2-1)
[2023-08-29 08:07] LABS: TOT PROT 6.3 g/dl (6.4-8.2)
[2023-08-29 08:35] VITALS: RESP 18
[2023-08-29] MEDS: THIAMINE HCL 100 MG TABLET (FP) PO SCH (09:56)
[2023-08-29] MEDS: ENOXAPARIN NA (PORCINE) 40 MG/0.4 ML DISP.SYRIN SQ SCH ×2 (09:57→10:06)
[2023-08-29] MEDS: FOLIC ACID 1 MG TABLET (FP) PO SCH (09:57)
[2023-08-29] MEDS: HYDROCORTISONE 1% TOPICAL LOTION 118 ML BOTTLE TP SCH (09:59)
[2023-08-29] MEDS: NYSTATIN 100,000 UNIT/GM TOPICAL CREAM 15 GM TUBE TP SCH (09:59)
[2023-08-29] MEDS: HYDROCORTISONE 0.5% TOPICAL CREAM 30 GM TUBE TP SCH (09:59)
[2023-08-29 15:33] VITALS: BP 127/77; PULSE 88; TEMP 97.9
== END 2023-08-29 18:00 | DRG 139 ==
LOC: JER 22:00 → JERBED 08-16 00:22 → J4S 08-16 18:47
PROVIDERS: ADMIT Internal Medicine; ATTEND Internal Medicine
DX: J18.9 Pneumonia, unspecified organism (principal); J96.21 Acute and chronic respiratory failure with hypoxia; J96.22 Acute and chronic respiratory failure with hypercapnia; I11.0 Hypertensive heart disease with heart failure; I50.33 Acute on chronic diastolic (congestive) heart failure; E66.01 Morbid (severe) obesity due to excess calories; Z68.41 Body mass index [BMI] 40.0-44.9, adult; E87.70 Fluid overload, unspecified; F10.139 Alcohol abuse with withdrawal, unspecified; E87.3 Alkalosis; J98.11 Atelectasis; F17.210 Nicotine dependence, cigarettes, uncomplicated; F12.90 Cannabis use, unspecified, uncomplicated; F17.200 Nicotine dependence, unspecified, uncomplicated; M54.50 Low back pain, unspecified; J44.1 Chronic obstructive pulmonary disease with (acute) exacerbation; J44.0 Chronic obstructive pulmonary disease with (acute) lower respiratory infection; E87.29 Other acidosis; G47.33 Obstructive sleep apnea (adult) (pediatric); L25.9 Unspecified contact dermatitis, unspecified cause; W05.0XXA Fall from non-moving wheelchair, initial encounter; Y92.89 Other specified places as the place of occurrence of the external cause; Y99.8 Other external cause status
CPT/HCPCS: 0241U-QW; 36415; 36600; 71045-TC-FY; 71250-TC; 74150-TC; 74176-TC; 80048; 80053; 80061; 81003; 82803; 82962; 83735; 83880; 84100; 84439; 84443; 84484; 85025; 85027; 85610; 85730; 87040; 87389; 87635; 87899; 93005; 93010; 93306-TC; 93970-TC; 94660; 94761; 97116-GP; 97162-GP; 99285-25

== ENCOUNTER 2023-08-30 00:01 | Emergency (ER) | payer OTHER ==
[2023-08-30 00:31] VITALS: BP 129/81; PULSE 94; RESP 20; TEMP 97.9; BMI 44.9
== END 2023-08-30 12:47 | disposition home or self-care (01) ==
LOC: JER 00:01
DX: R10.2 Pelvic and perineal pain (principal); R51.9 Headache, unspecified; W19.XXXA Unspecified fall, initial encounter; W22.8XXA Striking against or struck by other objects, initial encounter
CPT/HCPCS: 70450-TC; 72170-TC-FY; 99284-25